=== PATIENT | female | born 1935 | race Caucasian/White ===

== ENCOUNTER 2024-02-15 17:24 | Inpatient (IN) ==
[2024-02-15 18:02] LABS: ABS Basophils 0.1 10^3/uL (0.0-0.1); ABS Eosinophils 0.1 10^3/uL (0.0-0.5); ABS Lymphocytes 1.3 10^3/uL (1.0-4.8); ABS Monocytes 0.6 10^3/uL (0.0-0.9); ABS Neutrophils 6.9 10^3/uL (1.5-7.6); ABS Nucleated RBC 0.01 10^3/ul; Eosinophil % 0.8 %; Hematocrit 40.1 % (35-45); Hemoglobin 13.3 g/dL (11.5-14.3); Lymphocyte % 14.5 %; Mean Corpuscular Hgb Conc 33.3 g/dL (31-36); Mean Corpuscular Volume 96.1 fL (80-97); Mean Platelet Volume 8.6 fL (7.5-11.2); Nucleated Red Blood Cells % 0.1 %/100WBC (0.0-0.8); Platelet Count 217 10^3/uL (150-450); Red Blood Count 4.17 10^6/uL (3.63-4.92); Red Cell Distribution Width 15.1 % (12-17); White Blood Count 8.9 10^3/uL (3.8-11.8)
[2024-02-15] MEDS ORDERED: Labetalol IV 5 MG/ML 20 ml VIAL ONE (18:08)
[2024-02-15 18:10] LABS: INR 1.36 (0.83-1.13)
[2024-02-15] MEDS: Labetalol IV 5 MG/ML 20 ml VIAL IV PUSH ONE ×2 (18:15→18:36)
[2024-02-15 18:48] LABS: Albumin/Globulin Ratio 1.4 (1-3); Calcium 9.6 mg/dL (8.6-10.3); Creatinine, Serum 0.63 mg/dL (0.51-0.95); Globulin 2.8 g/dL (2-4); Potassium 3.3 mmol/L (3.5-5.0); Total Bilirubin 0.9 mg/dL (0.2-1.0); Total Protein 6.8 g/dL (6.4-8.9); eGFR CKD-EPI 85.3 (>60)
[2024-02-15] MEDS ORDERED: Polyethylene Glycol 3350 17 GM PACKET PO PRN (19:24)
[2024-02-15] MEDS ORDERED: Ondansetron 4 mg VIAL 2 MG/ML 2 ml VIAL IV PRN (19:24)
[2024-02-15] MEDS ORDERED: Senna TAB 8.6 mg TAB PO PRN (19:24)
[2024-02-15 19:27] LABS: High Sensitivity Troponin 1 Hr 40 pg/mL (<15)
[2024-02-15] MEDS: Potassium EFFERVES 25 meq TAB PO ONE (20:42)
[2024-02-15] MEDS: Betaxolol 0.5 % OPHTH.SOLN 5 ML BOTH EYES SCH (22:15)
[2024-02-16] LABS: Magnesium 2.1 mg/dL (1.9-2.7)
[2024-02-16 05:54] LABS: ABS Eosinophils 0.1 10^3/uL (0.0-0.5); ABS Lymphocytes 0.9 10^3/uL (1.0-4.8); ABS Monocytes 0.4 10^3/uL (0.0-0.9); ABS Neutrophils 3.4 10^3/uL (1.5-7.6); ABS Nucleated RBC 0.01 10^3/ul; Eosinophil % 2.4 %; Hematocrit 34.3 % (35-45); Hemoglobin 11.7 g/dL (11.5-14.3); Lymphocyte % 18.1 %; Mean Corpuscular Hemoglobin 32.4 pg (27-33); Mean Corpuscular Volume 95.3 fL (80-97); Mean Platelet Volume 8.5 fL (7.5-11.2); Nucleated Red Blood Cells % 0.1 %/100WBC (0.0-0.8); Platelet Count 160 10^3/uL (150-450); Red Cell Distribution Width 14.8 % (12-17); White Blood Count 4.9 10^3/uL (3.8-11.8)
[2024-02-16 06:09] LABS: Calcium 8.3 mg/dL (8.6-10.3); Creatinine, Serum 0.62 mg/dL (0.51-0.95); Potassium 3.6 mmol/L (3.5-5.0); eGFR CKD-EPI 85.6 (>60)
[2024-02-16] MEDS ORDERED: Sulfur Hexaflouride MICROSPHR 25 MG VIAL ONE ×2 (08:13→14:27)
[2024-02-16] MEDS: Potassium Chloride LIQUID 20 MEQ/15 ML LIQUID PO ONE (09:50)
[2024-02-16 11:11] LABS: TSH Ultra Thyroid Stim Horm 3.23 mcIU/mL (0.34-5.60)
[2024-02-16] MEDS: PTO: Dorzolamide 2% OPTH (NF) 10 ML BTL BOTH EYES SCH (19:47)
[2024-02-16] MEDS: Potassium Chlor 20 meq TAB.ER PO ONE (19:51)
[2024-02-16] MEDS: Ketorolac 0.5% OPHTH 5 ML BTL BOTH EYES SCH (20:01)
[2024-02-17 06:26] LABS: ABS Eosinophils 0.3 10^3/uL (0.0-0.5); ABS Monocytes 0.4 10^3/uL (0.0-0.9); ABS Neutrophils 4.5 10^3/uL (1.5-7.6); Hematocrit 37.7 % (35-45); Hemoglobin 12.8 g/dL (11.5-14.3); Lymphocyte % 16.5 %; Mean Corpuscular Hemoglobin 32.8 pg (27-33); Mean Corpuscular Hgb Conc 33.9 g/dL (31-36); Mean Corpuscular Volume 96.6 fL (80-97); Mean Platelet Volume 8.7 fL (7.5-11.2); Platelet Count 204 10^3/uL (150-450); Red Blood Count 3.91 10^6/uL (3.63-4.92); Red Cell Distribution Width 15.6 % (12-17); White Blood Count 6.2 10^3/uL (3.8-11.8)
[2024-02-17 06:42] LABS: Creatinine, Serum 0.56 mg/dL (0.51-0.95); Potassium 4.1 mmol/L (3.5-5.0); eGFR CKD-EPI 87.7 (>60)
[2024-02-17 07:02] LABS: Ferritin 87.4 ng/mL (11-307)
[2024-02-17] MEDS ORDERED: Albuterol HFA INHALER 8 gm MDI INH PRN (10:41)
[2024-02-17] MEDS: SPIRIVA Respimat (tiotropium) 2.5 mcg/inh Inhaler INH SCH (13:02)
[2024-02-17] MEDS: Iohexol 350 (CONTRAST) 500 ML MDV IV ONE (13:45)
[2024-02-18 06:50] LABS: Calcium 8.7 mg/dL (8.6-10.3); Creatinine, Serum 0.54 mg/dL (0.51-0.95); Magnesium 1.8 mg/dL (1.9-2.7); Phosphorus 3.3 mg/dL (2.5-5.0); Potassium 3.7 mmol/L (3.5-5.0); eGFR CKD-EPI 88.5 (>60)
[2024-02-18] MEDS: Potassium Chlor 20 meq TAB.ER PO ONE (08:17)
[2024-02-18] MEDS: Magnesium Sulfate 2 gm BAG 2 GM/50 ML BAG IVPB ONE (08:18)
[2024-02-18] MEDS: Iron Sucrose 200 MG in NS 0.9% 100 ml BAG 100 ML IVPB SCH (14:07)
[2024-02-19 06:17] LABS: Calcium 8.5 mg/dL (8.6-10.3); Creatinine, Serum 0.66 mg/dL (0.51-0.95); Potassium 4.3 mmol/L (3.5-5.0); eGFR CKD-EPI 84.3 (>60)
[2024-02-20 05:39] LABS: Calcium 9.3 mg/dL (8.6-10.3); Creatinine, Serum 0.64 mg/dL (0.51-0.95); Phosphorus 3.3 mg/dL (2.5-5.0); Potassium 3.9 mmol/L (3.5-5.0); eGFR CKD-EPI 84.9 (>60)
[2024-02-20] MEDS ORDERED: Aminophylline 25 MG/ML VIAL ONE (07:57)
[2024-02-20] MEDS ORDERED: Regadenoson 0.4 MG/5 ML SYRINGE ONE (07:57)
[2024-02-20 13:56] VITALS: BP 126/63
== END 2024-02-20 15:57 | disposition home or self-care (01) | DRG 291 ==
LOC: ED 17:24 → EDHOLD 20:12 → SUATTDRO 20:12 → MEDTELE 22:05
PROVIDERS: ADMIT Student in an Organized Health Care Education/Training Program; ATTEND Internal Medicine